=== PATIENT | female | born 1985 | race Caucasian/White ===

== ENCOUNTER 2016-06-13 08:51 | Outpatient (CLI) | payer BC, OTHER | END 2016-06-13 08:52 | disposition home or self-care (01) | DX: Z00.00 Encounter for general adult medical examination without abnormal findings (principal); B35.1 Tinea unguium ==

== ENCOUNTER 2017-06-21 08:00 | Outpatient (CLI) | payer BC, OTHER ==
[2017-06-21 13:06] LABS: ALBUMIN/GLOBULIN RATIO 1.1 (1.0-2.2); BILIRUBIN,TOTAL 0.5 mg/dL (0.2-1.0); CALCIUM 9.2 mg/dL (8.5-10.3); CREATININE 0.8 mg/dL (0.4-1.0); TOTAL PROTEIN 7.7 g/dL (6.7-8.2)
== END 2017-06-21 08:01 ==
LOC: LAB.WCP 08:00
PROVIDERS: ATTEND Physician Assistant Medical
DX: E03.9 Hypothyroidism, unspecified (principal); B35.1 Tinea unguium
CPT/HCPCS: 36415; 80053; 84443

== ENCOUNTER 2019-04-16 08:00 | Outpatient (CLI) | payer BC, OTHER ==
[2019-04-16 12:34] LABS: ALBUMIN 4.1 g/dL (3.2-5.5); ALBUMIN/GLOBULIN RATIO 1.3 (1.0-2.2); BILIRUBIN,TOTAL 0.4 mg/dL (0.2-1.0); CALCIUM 8.8 mg/dL (8.5-10.3); CREATININE 0.8 mg/dL (0.4-1.0); TOTAL PROTEIN 7.2 g/dL (6.7-8.2)
[2019-04-16 13:24] LABS: HB2 TOTAL 13.1 g/dL; HEMOGLOBIN A1C 0.45 g/dL; HEMOGLOBIN A1C % 5.3 % (4.6-6.2)
[2019-04-16 13:30] LABS: FREE T4 (FREE THYROXINE) 0.79 ng/dL (0.58-1.64)
== END 2019-04-16 23:59 | disposition home or self-care (01) ==
LOC: LAB.WCP 08:00
PROVIDERS: ATTEND Physician Assistant Medical
DX: Z00.00 Encounter for general adult medical examination without abnormal findings (principal); E03.9 Hypothyroidism, unspecified
CPT/HCPCS: 36415; 80053; 83036; 84439; 84443

== ENCOUNTER 2019-06-04 14:25 | Outpatient (CLI) | payer BC | END 2019-06-04 23:59 | disposition home or self-care (01) | LOC: LAB.WCP 14:25 | PROVIDERS: ATTEND Physician Assistant Medical | DX: Z34.90 Encounter for supervision of normal pregnancy, unspecified, unspecified trimester (principal) | CPT/HCPCS: 36415; 84702 ==

== ENCOUNTER 2019-06-14 09:54 | Outpatient (CLI) | payer BC ==
--- NOTE | 2019-06-15 12:13 | Ultrasound Report ---
Reason: HYPOTHYROIDSIM NOS Procedure Date: 06/14/2019 Accession Number: [id number] / [id number] Procedure: US - Head or Neck Soft Tissue CPT Code: Final Report FULL RESULT: EXAM: THYROID ULTRASOUND EXAM DATE: 06/14/2019 09:54 AM. CLINICAL HISTORY: Hypothyroidism. On levothyroxine since 1999. Choking sensation for years, worse in past 6 months. COMPARISON: None. TECHNIQUE: Real time sonographic imaging of the thyroid was performed by the microbiology analyst. Multiple outreach representative static images were saved for review. FINDINGS: THYROID GLAND: Right Lobe: 3.1 x 0.6 x 0.8 cm, volume 0.8 cc. Heterogeneous background echotexture. Hypoechoic nodule within versus posterior to the superior pole measuring 0.7 x 0.4 x 0.4 cm. Left Lobe: 2.9 x 0.7 x 0.8 cm, volume 0.8 cc. Heterogeneous echotexture with no discrete nodules. Isthmus: 0.2 cm AP. Heterogeneous echotexture with no discrete nodules. LYMPH NODES: No adenopathy demonstrated in the central or lateral compartment. OTHER: None. IMPRESSION: 1. Heterogeneous, atrophic thyroid parenchyma, typical appearance in patients with chronic thyroid disease. 2. Subcentimeter hypoechoic nodule within versus posterior to the superior pole. If this is a thyroid nodule it does not meet size criteria for tissue sampling. Alternatively, this may represent a parathyroid adenoma. Recommend correlation with laboratory studies. Management recommendations are based on 2015 [place] [employer] Management Guidelines for Adult Patients with Thyroid Nodules and Differentiated Thyroid Cancer. RADIA
== END 2019-06-14 09:55 | disposition home or self-care (01) ==
LOC: DI 09:54
PROVIDERS: ATTEND Physician Assistant Medical
DX: E03.9 Hypothyroidism, unspecified (principal)
CPT/HCPCS: 76536